=== PATIENT | male | born 2000 | race Caucasian/White ===

== ENCOUNTER 2023-02-01 14:26 | Emergency (ER) | payer BC ==
[2023-02-01 14:59] LABS: BASOPHILS ABSOLUTE AUTO 0.1 x10-3/uL (0.0-0.3); BASOPHILS PERCENT AUTO 1.1 % (0.3-3.8); EOSINOPHILS ABSOLUTE AUTO 0.5 x10-3/uL (0.0-0.6); EOSINOPHILS PERCENT AUTO 7.9 % (0.1-6.8); HEMATOCRIT 35.3 % (38.3-50.1); HEMOGLOBIN 11.8 g/dL (12.9-17.7); LYMPHOCYTES PERCENT AUTO 44.1 % (15.8-45.3); MEAN CORPUSCULAR HEMOGLOBIN 26.9 pg (27.0-33.3); MEAN CORPUSCULAR HGB CONC 33.4 g/dL (28.7-35.3); MEAN CORPUSCULAR VOLUME 80.5 fL (80.8-98.7); MEAN PLATELET VOLUME 6.7 fL (6.7-11.0); MONOCYTES ABSOLUTE AUTO 0.5 x10-3/uL (0.0-1.2); MONOCYTES PERCENT AUTO 7.2 % (5.5-15.2); NEUTROPHILS ABSOLUTE AUTO 2.7 x10-3/uL (1.7-6.9); NEUTROPHILS PERCENT AUTO 39.7 % (40.3-71.8); PLATELET COUNT,PLT 310 x10(3)uL (117-477); RED BLOOD CELL COUNT 4.39 x10(6)uL (3.90-5.90); WHITE BLOOD CELL COUNT,WBC 6.8 x10-3/uL (3.2-10.1)
[2023-02-01 15:03] LABS: BLOOD UREA NITROGEN,BUN 14 mg/dL (7-18); BUN/CREATININE RATIO 11.7 (9-20); CALCIUM 8.9 mg/dL (8.6-10.2); CARBON DIOXIDE,CO2 31 mmol/L (21-32); CHLORIDE,CL 104 mmol/L (100-110); CREATININE 1.2 mg/dL (0.70-1.30); EST CRCL DRUG DOSING (CG) 113.22 mL/min; ESTIMATED GFR 88 mL/min (>60); GLUCOSE RANDOM 105 mg/dL (80-116); SODIUM,NA 142 mmol/L (135-145)
[2023-02-01 15:08] LABS: A/G RATIO 1.2; ALANINE AMINOTRANSFERASE,ALT 15 U/L (12-36); ALBUMIN 3.7 g/dL (3.5-5.2); ALKALINE PHOSPHATASE 45 IU/L (56-112); ASPARTATE AMNIOTRANSFERASE,AST 22 IU/L (5-25); BILIRUBIN TOTAL 1.5 mg/dL (0.1-1.3); PROTEIN TOTAL,TP 6.8 g/dL (6.0-8.0)
[2023-02-01] MEDS ORDERED: Sucralfate 1 GM Tab PO ONE ×3 (15:29→22:00)
[2023-02-01] MEDS ORDERED: Alum Hydroxide/Mag Hydroxide 15 ML, Lidocaine 2% 15 ML PO ONE ×2 (15:29)
[2023-02-01] MEDS ORDERED: Lactated Ringers 1,000 ML IV ONE (15:29)
[2023-02-01] MEDS ORDERED: Pantoprazole 40 MG Vial IVPUSH ONE (16:04)
[2023-02-01] MEDS ORDERED: Sucralfate 1 GM Tab ONE (16:46)
[2023-02-01] MEDS ORDERED: Pantoprazole 40 MG Tab.CR ONE ×2 (16:48→16:59)
[2023-02-02] MEDS ORDERED: Pantoprazole 40 MG Tab.CR PO SCH (06:00)
[2023-02-02] MEDS ORDERED: Pantoprazole 40 MG Tab.CR PO ONE (16:54)
== END 2023-02-01 17:47 | disposition home or self-care (01) ==
LOC: FB.ED 14:26
DX: K20.90 Esophagitis, unspecified without bleeding (principal); K51.90 Ulcerative colitis, unspecified, without complications; D50.9 Iron deficiency anemia, unspecified
CPT/HCPCS: 36415; 80053; 85025; 86140; 93005; 93010; 96361; 96374; 99284; 99285; A9270; C9113; J7120